=== PATIENT | female | born 1990 | race Asian ===

== ENCOUNTER 2023-06-16 02:14 | Emergency (ER) | payer OTHER ==
[~2023-06-16] VITALS: Ht 167.6 cm; Wt 57.0 kg
[2023-06-16 02:27] VITALS: O2SAT 100
[2023-06-16] MEDS ORDERED: ACETAMINOPHEN 325MG TABLET PO ONE (04:00)
[2023-06-16 04:40] VITALS: BP 112/66; PULSE 72; RESP 18; TEMP 98.4
== END 2023-06-16 04:41 | disposition home or self-care (01) ==
LOC: ER 02:14
DX: M25.532 Pain in left wrist (principal); Z88.0 Allergy status to penicillin; Z88.1 Allergy status to other antibiotic agents; Z88.5 Allergy status to narcotic agent
CPT/HCPCS: 29125; 73110; 99283